=== PATIENT | male | born 1995 | race African-American/Black ===

== ENCOUNTER 2024-11-25 19:18 | Emergency (ER) | payer MEDICAID ==
[2024-11-25] MEDS: Ibuprofen 600 MG Tab PO ONE (21:29)
[2024-11-25] MEDS: Penicillin V Potassium 500 MG Tab PO ONE (21:29)
[2024-11-25] MEDS: Acetaminophen/oxyCODONE 325-5 MG Tab PO ONE (21:29)
== END 2024-11-25 21:42 | disposition home or self-care (01) ==
LOC: MW.ED 19:18
DX: K04.7 Periapical abscess without sinus (principal); K02.62 Dental caries on smooth surface penetrating into dentin
CPT/HCPCS: 99282; A9270; 99283